=== PATIENT | female | born 1945 | race Caucasian/White ===

== ENCOUNTER 2018-12-09 18:33 | Emergency (ER) | payer OTHER ==
[2018-12-09] MEDS: IBUPROFEN 800 MG TAB PO (20:14)
== END 2018-12-09 21:07 | disposition home or self-care (01) ==
LOC: E/R 18:33
DX: S00.531A Contusion of lip, initial encounter (principal); R51 Headache; W01.0XXA Fall on same level from slipping, tripping and stumbling without subsequent striking against object, initial encounter; Y92.9 Unspecified place or not applicable; Z79.84 Long term (current) use of oral hypoglycemic drugs
CPT/HCPCS: 70450; 70486; 99284-25